=== PATIENT | male | born 1960 | race American Indian/Alaskan Native ===

== ENCOUNTER 2021-05-21 03:34 | Emergency (ER) | payer BC, OTHER ==
[2021-05-21 03:59] VITALS: BP 162/72
[2021-05-21] MEDS ORDERED: SODIUM CHLORIDE 0.9% 1000 ML 1,000 ML IV ONE (04:11)
[2021-05-21] MEDS ORDERED: ACETAMINOPHEN 500 MG TAB PO ONE (04:11)
[2021-05-21] MEDS ORDERED: FAMOTIDINE 20 MG/2 ML INJ IV ONE (04:11)
[2021-05-21] MEDS ORDERED: ONDANSETRON 4 MG/2 ML INJ IV ONE (04:12)
[2021-05-21 04:53] LABS: Basophils # (Auto) 0.1 K/mm3 (0.0-0.1); Basophils % (Auto) 2.8 % (0.0-1.8); Hematocrit 39.8 % (35.5-45.6); Hemoglobin 12.3 gm/dl (11.8-15.2); Lymphocytes # (Auto) 0.6 K/mm3 (1.2-5.4); Lymphocytes % (Auto) 12.2 % (13.4-35.0); Mean Corpuscular HGB Conc 31 % (32-34); Mean Corpuscular Volume 71 fl (84-94); Monocytes # (Auto) 0.2 K/mm3 (0.0-0.8); Platelet Count 162 K/mm3 (140-440); Red Blood Count 5.57 M/mm3 (3.65-5.03); Red Cell Distribution Width 15.4 % (13.2-15.2)
--- NOTE | 2021-05-21 05:02 | XRay Report ---
XR chest routine 2V INDICATION / CLINICAL INFORMATION: FEVER. COMPARISON: None available. FINDINGS: SUPPORT DEVICES: None. HEART /PULMONARY VASCULATURE: No significant abnormality. LUNGS / PLEURA: Mild patchy airspace opacities within the right mid and lower lung and left lung base . No sizable pleural effusion. No pneumothorax. ADDITIONAL FINDINGS: No significant additional findings. IMPRESSION: Right greater than left basilar predominant airspace opacities, concerning for pneumonia. Signer Name: Sumit Rider MD Signed: 05/21/2021 4:58 AM Workstation Name: [id number]
[2021-05-21] MEDS ORDERED: methylPREDNISolone Sod Succinate 125 MG/2 ML INJ IV ONE (05:13)
[2021-05-21] MEDS ORDERED: cefTRIAXone/NS 1 GM/50 ML 1 GM/50 ML BAG IV ONE (05:13)
[2021-05-21] MEDS ORDERED: AZITHROMYCIN 250 MG TAB PO ONE (05:13)
[2021-05-21 05:19] LABS: Albumin 3.9 g/dL (3.9-5); Calcium 8.1 mg/dL (8.4-10.2)
--- NOTE | 2021-05-21 06:31 | Emergency Department Report ---
- General Chief Complaint: Fever Stated Complaint: FEVER AND DIARRHEA PUI?: No Source: patient Mode of arrival: Ambulatory Limitations: No Limitations - History of Present Illness Initial Comments: Patient is a 61-year-old -[place] male with no past medical history who presents to the ED with complaint of acute onset persistent nasal and sinus congestion, persistent dry cough, nausea and persistent diarrhea with intermittent fever of up to 102 F for the last 1 week. Patient states that he has also been experiencing persistent lightheadedness and generalized weakness and actually had a single episode of syncope with brief loss of consciousness 4 days ago. Patient states that he has been taking [id number] medications with no relief and states that in the last 2 days his generalized weakness, body aches and pains, and lack of appetite got worse. Patient also states that no one else at home has had similar symptoms. Patient denies chest pain, shortness of breath, sore throat, nasal and sinus congestion, abdominal pain, diarrhea, dysuria, urinary frequency and urgency, hematuria, hematochezia or testicular pain. MD Complaint: fever, cough, rhinorrhea, nasal congestion, sinus pain, other (Lightheadedness, generalized weakness and syncopal episode; diarrhea and nausea) -: Sudden Severity: severe Severity scale (0 -10): 7 Quality: sharp, aching Consistency: constant Improves With: nothing Worsens With: nothing Associated Symptoms: denies other symptoms, fever, chills, myalgias, headache, rhinorrhea, nasal congestion, cough, diarrhea, other (Lightheadedness). denies: diaphoresis, sore throat, stiff neck, chest pain, shortness of breath, abdominal pain, nausea, vomiting, dysuria, rash, confusion, right sweats, weight loss, epistaxis, hoarseness, ear pain - Related Data Previous Rx's Medication Instructions Recorded Last Taken Type Cyclobenzaprine HCl [Flexeril 5 MG 5 mg PO TID #10 tab 04/19/17 Unknown Rx TAB] HYDROcodone/APAP 5-325 [[place] 1 each PO Q6HR PRN #10 tablet 04/19/17 Unknown Rx 5/325] Acetaminophen [Tylenol] 500 mg PO Q6HR PRN #30 tablet 05/21/21 Unknown Rx Ascorbic Acid [Vitamin C] 1,000 mg PO Q12H #30 tablet 05/21/21 Unknown Rx Benzonatate [Tessalon Perles] 100 mg PO Q8HR #30 capsule 05/21/21 Unknown Rx Cetirizine HCl [Zyrtec 10mg tab] 10 mg PO DAILY #30 tablet 05/21/21 Unknown Rx Doxycycline Hyclate 100 mg PO Q12H #28 capsule 05/21/21 Unknown Rx Allergies Allergy/AdvReac Type Severity Reaction Status Date / Time No Known Allergies Allergy Unverified 04/19/17 02:12 ED Review of Systems ROS: Stated complaint: FEVER AND DIARRHEA Other details as noted in HPI Constitutional: chills, fever, malaise, weakness Eyes: denies: eye pain, eye discharge, vision change ENT: congestion. denies: ear pain, throat pain Respiratory: cough. denies: shortness of breath, SOB with exertion, wheezing Cardiovascular: syncope. denies: chest pain, palpitations Endocrine: no symptoms reported Gastrointestinal: nausea, diarrhea. denies: abdominal pain, vomiting Genitourinary: denies: urgency, dysuria Musculoskeletal: denies: back pain, joint swelling, arthralgia Skin: denies: rash, lesions Neurological: headache, other (lightheadedness). denies: weakness, paresthesias Psychiatric: denies: anxiety, depression Hematological/Lymphatic: denies: easy bleeding, easy bruising ED Past Medical Hx - Past Medical History Previous Medical History?: No - Surgical History Past Surgical History?: No - Social History Smoking Status: Never Smoker Substance Use Type: None - Medications Home Medications: Home Medications Medication Instructions Recorded Confirmed Last Taken Type Cyclobenzaprine HCl [Flexeril 5 MG 5 mg PO TID #10 tab 04/19/17 Unknown Rx TAB] HYDROcodone/APAP 5-325 [[place] 1 each PO Q6HR PRN #10 tablet 04/19/17 Unknown Rx 5/325] Acetaminophen [Tylenol] 500 mg PO Q6HR PRN #30 tablet 05/21/21 Unknown Rx Ascorbic Acid [Vitamin C] 1,000 mg PO Q12H #30 tablet 05/21/21 Unknown Rx Benzonatate [Tessalon Perles] 100 mg PO Q8HR #30 capsule 05/21/21 Unknown Rx Cetirizine HCl [Zyrtec 10mg tab] 10 mg PO DAILY #30 tablet 05/21/21 Unknown Rx Doxycycline Hyclate 100 mg PO Q12H #28 capsule 05/21/21 Unknown Rx ED Physical Exam - General Limitations: No Limitations General appearance: alert, in no apparent distress - Head Head exam: Present: atraumatic, normocephalic, normal inspection - Eye Eye exam: Present: normal appearance, PERRL, EOMI Pupils: Present: normal accommodation - ENT ENT exam: Present: normal orophraynx, mucous membranes moist, TM's normal bilaterally, normal external ear exam, other (Grossly congested nasal passages) - Neck Neck exam: Present: normal inspection, tenderness, full ROM - Respiratory Respiratory exam: Present: normal lung sounds bilaterally. Absent: respiratory distress, wheezes, rales, rhonchi, chest wall tenderness, accessory muscle use, decreased breath sounds, prolonged expiratory - Cardiovascular Cardiovascular Exam: Present: regular rate, normal rhythm, normal heart sounds. Absent: systolic murmur, diastolic murmur, rubs, gallop - GI/Abdominal GI/Abdominal exam: Present: soft, normal bowel sounds. Absent: tenderness, guarding, rebound, hyperactive bowel sounds, hypoactive bowel sounds, organomegaly - Extremities Exam Extremities exam: Present: normal inspection, full ROM, normal capillary refill - Back Exam Back exam: Present: normal inspection, full ROM. Absent: tenderness, CVA tenderness (R), CVA tenderness (L), muscle spasm, paraspinal tenderness - Neurological Exam Neurological exam: Present: alert, oriented X3, CN II-XII intact, normal gait, reflexes normal - Psychiatric Psychiatric exam: Present: normal affect, normal mood - Skin Skin exam: Present: warm, dry, intact, normal color. Absent: rash ED Course Vital Signs 05/21/21 05/21/21 03:55 07:13 Temperature 102.6 F H 100.5 F H Pulse Rate 83 Respiratory 18 Rate Blood Pressure 162/72 O2 Sat by Pulse 96 Oximetry ED Medical Decision Making - Lab Data Result diagrams: 05/21/21 04:13 05/21/21 04:13 - Radiology Data Radiology results: report reviewed, image reviewed [facility] [address] [place] [address] XRay Report Signed Patient: ISABELLA AVILA MR#: [id number] : 1960 Acct:[id number] Age/Sex: 61 / M ADM Date: 05/21/21 Loc: ED Attending Dr: Ordering Physician: Adela Johnson MD Date of Service: 05/21/21 Procedure(s): XR chest routine 2V Accession Number(s): [id number] cc: Adela Johnson MD Fluoro Time In Minutes: XR chest routine 2V INDICATION / CLINICAL INFORMATION: FEVER. COMPARISON: None available. FINDINGS: SUPPORT DEVICES: None. HEART /PULMONARY VASCULATURE: No significant abnormality. LUNGS / PLEURA: Mild patchy airspace opacities within the right mid and lower lung and left lung base. No sizable pleural effusion. No pneumothorax. ADDITIONAL FINDINGS: No significant additional findings. IMPRESSION: Right greater than left basilar predominant airspace opacities, concerning for pneumonia. Signer Name: Haroon Rider MD Signed: 05/21/2021 4:58 AM Workstation Name: [id number] Transcribed By: CARMEN Dictated By: HAROON RIDER MD Electronically Authenticated By: HAROON RIDER MD Signed Date/Time: 05/21/21457 DD/ 6 TD/TT: Print Cancel - Medical Decision Making This is a 61-year-old -Cro[place] male with no past medical history who presents to the ED with complaint of acute onset persistent nasal and sinus congestion, persistent dry cough, nausea and persistent diarrhea with intermittent fever of up to 102 F for the last 1 week. Patient states that he has also been experiencing persistent lightheadedness and generalized weakness and actually had a single episode of syncope with brief loss of consciousness 4 days ago. Patient states that he has been taking gapw-dzw-hifgnsr medications with no relief and states that in the last 2 days his generalized weakness, body aches and pains, and lack of appetite got worse. Patient also states that no one else at home has had similar symptoms. Chest x-ray shows mild patchy air space opacities within the right mid and lower lung and left lung base, concerning for pneumonia. No sizable pleural effusion. No pneumothorax. However given the fact that the patient was not vaccinated against Covid-19 it is also likely that the patient may be having underlying COVID-19 viral infection pneumonia. Patient was treated in the ED for fever with Tylenol, also given 12 Medrol 125 mg IV x1, also treated with normal saline 1 L IV bolus and Rocephin 1 g IV as well as azithromycin 500 mg p.o. x1. Lab test results were reviewed and showed creatinine of 1.5, AST of 62 and ALT of 64 and lipase levels of 75. These findings are likely due to dehydration and a viral syndrome concerning for COVID-19 pneumonia. On reevaluation, patient's fever resolved with medication, patient is hemodynamically stable, and oxygen saturation is 99% in room air. Patient was discharged home on medications and advised to go to one of the outpatient facilities for COVID-19 viral diagnosis and if positive to self quarantine at home for 10 days while taking medications. Patient was also advised to return to emergency department immediately if symptoms get worse. Patient was also advised to follow-up with his primary care physician in 7 to 10 days for reevaluation. - Differential Diagnosis Pneumonia; COVID-19; bronchitis; URI; sinusitis; viral syndrome; Critical care attestation.: If time is entered above; I have spent that time in minutes in the direct care of this critically ill patient, excluding procedure time. ED Disposition Clinical Impression: Fever and chills, Suspected 2019 novel coronavirus infection Community acquired pneumonia Qualifiers: Laterality: right Lung location: lower lobe of lung Qualified Code(s): J18.9 - Pneumonia, unspecified organism Disposition: 01 HOME / SELF CARE / HOMELESS Is pt being admited?: No Does the pt Need Aspirin: No Condition: Stable Instructions: COVID-19, COVID-19: How to Protect Yourself and Others - CDC, Fever, Adult, [id number], Community-Acquired Pneumonia, Adult, [id number], Bacterial Pneumonia (ED) Additional Instructions: All lab test results were reviewed and are all nonactionable except for elevated liver enzymes consistent with a viral syndrome. Chest x-ray showed bilateral lower lobe pneumonia which can either be viral or bacterial, COVID-19 viral infection cannot be ruled out. Therefore go get tested for COVID-19 in one of the outpatient facilities and continue taking the previously prescribed medications. Patient is advised return to the ED immediately if symptoms get worse. Patient was otherwise advised to self quarantine at home if the tests are positive for COVID-19 viral infection. Therefore it take medications with food, drink plenty of fluids and follow-up with your primary care physician as advised in 7 to 10 days. Return to the ED immediately if symptoms get worse. Prescriptions: Acetaminophen [Tylenol] 500 mg PO Q6HR PRN #30 tablet PRN Reason: Fever or pain Doxycycline Hyclate 100 mg PO Q12H #28 capsule Benzonatate [Tessalon Perles] 100 mg PO Q8HR #30 capsule Ascorbic Acid [Vitamin C] 1,000 mg PO Q12H #30 tablet Cetirizine HCl [Zyrtec 10mg tab] 10 mg PO DAILY #30 tablet Referrals: KEITH HUNTER MD [Staff Physician] - 7-10 days Time of Disposition: 06:43 Print Language: ITALIAN
--- NOTE | 2021-05-21 09:43 | Electrocardiograph Report ---
[facility] Test Date: 2021-05-21 Test Time: 04:51:25 Pat Name: ISABELLA AVILA Department: Room: Gender: M Hand Reamer: MARIO : 1960 Requested By: HAMILTON ASCENCIO Order Number: [id number] Reading MD: Francisco Sanchez Measurements Intervals [place] Rate: 74 P: 52 WV: 150 QRS: 8 QRSD: 87 T: 46 QT: 465 QTc: 517 Interpretive Statements Sinus rhythm Probable left atrial enlargement No previous ECG available for comparison Electronically Signed On 05-21-2021 9:42:43 EST by Francisco Sanchez
== END 2021-05-21 07:15 | disposition home or self-care (01) ==
LOC: ED 03:34
DX: R50.9 Fever, unspecified (principal); Z20.822 Contact with and (suspected) exposure to COVID-19; J18.9 Pneumonia, unspecified organism
CPT/HCPCS: 36415; 71046; 80053; 83690; 84484; 85025; 93005; 96365; 96375; 99284; J0696; J2405; J2930; J3490; J7030; Q0162